=== PATIENT | male | born 1945 | race Two or more races ===

== ENCOUNTER 2022-01-07 02:05 | Emergency (ER) | payer OTHER ==
[~2022-01-07] VITALS: Ht 182.9 cm; Wt 80.0 kg
[2022-01-07 02:46] VITALS: BP 145/87
[2022-01-07 03:21] LABS: Amphetamine Screen, Urine NEGATIVE (NEGATIVE); Barbiturate Scree,Urine NEGATIVE (NEGATIVE); Benzodiazephine Screen, Urine NEGATIVE (NEGATIVE); Cannabinoid Screen, Urine NEGATIVE (NEGATIVE); Cocaine Screen, Urine NEGATIVE (NEGATIVE); Opiate Scree,Urine NEGATIVE (NEGATIVE); Phencyclidine Screen, Urine NEGATIVE (NEGATIVE)
[2022-01-07 03:41] LABS: Urine Bacteria FEW /hpf (None Seen); Urine Blood Negative /uL (Negative); Urine Mucus FEW (None Seen); Urine Specific Gravity 1.019 (1.001-1.035); Urine WBC 1 /hpf (0 - 3)
== END 2022-01-07 03:33 | disposition left against medical advice (07) ==
LOC: EDUNIT# 02:05 → EDBD 02:05 → ER 02:13
DX: R53.1 Weakness (principal); I25.10 Atherosclerotic heart disease of native coronary artery without angina pectoris; I10 Essential (primary) hypertension; Z20.822 Contact with and (suspected) exposure to COVID-19; Z98.890 Other specified postprocedural states
CPT/HCPCS: 36415; 80307; 81001; 87426; 93005

== ENCOUNTER 2024-07-02 18:03 | Emergency (ER) | payer OTHER ==
[~2024-07-02] VITALS: Ht 170.2 cm; Wt 80.0 kg
--- NOTE | 2024-07-02 18:19 | ED.PDOC ---
History of Present Illness HPI Comments PMHx:CAD, High Lipids, HTN SHx:Pacemaker, PTCA Social Hx: Daily Alcohol Use, Denies Tobacco, Denies Substance Use Patient is on Coumadin HPI: Poor Historian. 79-year-old male presents to us found by ambulance because the neighbor called on him because he found him on the floor of the garage. Patient is awake and alert and oriented. Patient admits to drinking daily alcohol three drinks each day. Patient has been feeling somewhat weak in the last few days but denies any head injury. Denies any active chest pain or shortness of breath. Patient lives alone. Patient was smells like alcohol. Past Medical History: Past Surgical History: REVIEW OF SYSTEMS: CONSTITUTIONAL: Denies acute: fever, diaphoresis, chills, HEAD: Denies acute: headache, photophobia Eyes: Denies acute: Double vision, vision loss, eye pain, eye discharge. EARS: Denies acute: tinnitus, hearing loss, ear discharge, ear pain, THROAT: Denies acute: sore throat, swelling, difficulty swallowing , pain with swallowing, change in voice. NECK: Denies acute: neck pain, neck swelling, stiff neck. HEART: Denies acute : chest pain, palpitations, LUNGS: Denies acute: SOB, wheezing, cough, hemoptysis ABDOMEN: Denies acute: abdominal pain, Nausea, Vomiting, diarrhea, melena , hematemesis, hematochezia SKIN: Denies acute: rash, redness, lesions, itchiness. EXTREMITIES: Denies acute: calf pain, numbness, tingling, weakness, denies pain in extremity. Denies acute: Low back pain. Neuro: Denies acute: focal neurological deficit, motor or sensory focal neurological deficit, tremors, seizure like activity, confusion, dizziness, change in mental status, loss of bowel or bladder function, cauda equina like symptoms. : Denies acute: dysuria, hematuria, flank pain, increase in urinary frequency. PSYCH: Denies acute: hallucination, suicidal ideation, homicidal ideation. PHYSICAL EXAM: General: ----mild----acute distress, awake and alert. Head: normocephalic, atraumatic. Neck: supple, trachea is midline, no swelling. Throat: Normal phonation. Eyes:, no erythema, no purulent discharge, no proptosis, no icterus. Heart: regular rate, regular rhythm, no significant murmur appreciated. Lungs: no apparent respiratory distress, Able to speak in full sentences. No wheezing, no rhonchi, no crackles. No stridors Clear to auscultation bilaterally. Abdomen: non tender to palpation, non distended, soft, no guarding, no rebound, + bowel sounds. Neuro: Awake, Alert, oriented to name, self, situation, follows commands GCS=15. Speech is normal. Skin: no petechia, no purpura, no cyanosis, non-pale, not jaundice. Lower extremities: --no - Pitting edema no deformity, no focal swelling, no calf TTP. Makes eye contact. moves all four extremities. Face: no apparent facial droop. Ambulating in the ED independently. No nuchal rigidity, Kernig's sign, Brudzinski's sign, no meningeal signs. ED COURSE: Time Seen by MD: 18:05 Primary Care Provider: NONE Reviewed Notes: Nurses Notes, Allergies Allergies: Coded Allergies: NO KNOWN ALLERGIES (Unverified , 08/13/12) Information Source: Patient, Emergency Med Personnel Mode of Arrival: EMS Severity: Moderate Past Medical History PAST MEDICAL HISTORY: CAD, High Lipids, HTN Surgical History: Pacemaker, PTCA Family History Family History: Reviewed,noncontributory to illness, Unknown Social History Smoker: Non-Smoker Alcohol: Heavy Drugs: Denies Drug Use Lives In: Home Was a procedure done? Was a procedure done?: No Differential Dx Considerations may include: DDX include CVA, TGA, cerebellar ischemia/infarct, carotid stenosis, Intracranial mass/infection/bleed, encephalopathy, electrolyte abnormality, thyroid disease, hydrocephalus, hypoglycemia, drug toxicity, cardiac arrhythmia, seizure, infection in the elderly, Hyperammonemia., kidney failure., sepsis. X-Ray, Labs, Meds, VS Vital Signs Date Time Temp Pulse Resp B/P (MAP) Pulse Ox O2 Delivery O2 Flow Rate FiO2 07/02/24 20:00 83 07/02/24 18:39 98.3 78 16 150/77 (101) 99 98.3 07/02/24 18:26 73 Lab Test 07/02/24 19:40 07/02/24 18:41 Range/Units Urine Color Colorless Yellow Urine Clarity Clear Clear Urine pH 5.5 5.0-9.0 Urine Specific [place] 1.007 1.001-1.035 Urine Protein Negative Negative Urine Ketones Negative Negative Urine Blood Negative Negative /uL Urine Nitrite Negative Negative Urine Bilirubin Negative Negative Urine Urobilinogen Normal Negative mg/dL Urine Leukocyte Esterase Negative Negative /uL Urine RBC None seen 0 - 3 /hpf Urine Microscopic WBC < 1 0-3 /HPF Urine Squamous Epithelial Cells Few <5 /hpf Urine Bacteria None seen None Seen /hpf Urine Glucose Normal Normal mg/dL White Blood Count 5.1 4.4-10.8 10^3/uL Red Blood Count 4.77 4.5-5.90 10^6/uL Hemoglobin 15.3 13.5-17.5 g/dL Hematocrit 46.0 41.0-53.0 % Mean Corpuscular Volume 96.4 80.0-100.0 fL Mean Corpuscular Hemoglobin 32.1 H 28.0-32.0 pg Mean Corpuscular Hemoglobin Concent 33.3 32.0-36.0 g/dL Red Cell Distribution Width 13.2 11.8-14.3 % Platelet Count 175 140-450 10^3/uL Mean Platelet Volume 7.3 6.9-10.8 fL Neutrophils (%) (Auto) 65.7 37.0-80.0 % Lymphocytes (%) (Auto) 24.4 10.0-50.0 % Monocytes (%) (Auto) 8.5 0.0-12.0 % Eosinophils (%) (Auto) 1.1 0.0-7.0 % Basophils (%) (Auto) 0.3 0.0-2.0 % Neutrophils # (Auto) 3.4 1.6-8.6 10 ^3/uL Lymphocytes # (Auto) 1.2 0.4-5.4 10 ^3/uL Monocytes # (Auto) 0.4 0-1.3 10 ^3/uL Eosinophils # (Auto) 0.1 0-0.8 10 ^3/uL Basophils # (Auto) 0 0-0.2 10 ^3/uL Nucleated Red Blood Cells 0.1 % Prothrombin Time 10.6 9.3-11.8 sec Prothrombin Time INR 1.00 0.9-1.15 Activated Partial Thromboplast Time 32.4 24.5-34.5 SEC Sodium Level 143 136-145 mmol/L Potassium Level 4.2 3.5-5.1 mmol/L Chloride Level 108 H 98-107 mmol/L Carbon Dioxide Level 23 20-31 mmol/L Anion Gap 12 5-15 Blood Urea Nitrogen 23 9-23 mg/dL Creatinine 1.07 0.700-1.30 mg/dL Glomerular Filtration Rate Calc 71 >90 mL/min BUN/Creatinine Ratio 21.5 H 10.0-20.0 Serum Glucose 96 74-106 mg/dL Lactic Acid Level 3.4 *H 0.4-2.0 mmol/L Calcium Level 9.0 8.7-10.4 mg/dL Magnesium Level 2.0 1.6-2.6 mg/dL Total Bilirubin 0.3 0.2-1.0 mg/dL Aspartate Amino Transferase (AST) 18 13-40 U/L Alanine Aminotransferase (ALT) 13 7-40 U/L Alkaline Phosphatase 71 46-116 U/L Troponin I High Sensitivity 15 </=54 ng/L B-Type Natriuretic Peptide 90.57 0-100 pg/mL Total Protein 6.7 5.7-8.2 g/dL Albumin 4.5 3.2-4.8 g/dL Plasma/Serum Blood Alcohol 249.6 H <10 mg/dL Current Medications Medications (Trade) Dose Ordered Sig/Marlyn Route Start Time Stop Time Status Last Admin Sodium Chloride 1,000 ml @ 1,000 mls/hr Q1H ONCE IV 07/02/24 18:30 07/02/24 19:29 DC 07/02/24 18:49 [place] [address] Ph: [phone] DIAGNOSTIC IMAGING Diagnostic Imaging Report : [id number] Signed PATIENT: FAHAD HILL ACCT: [id number] UNIT: [id number] : 1945 LOC: ER ROOM / BED: / AGE / SEX: 79 / M ADM STATUS: REG ER SERVICE 16 ORDERING PHYSICIAN: JHONY KEANE DO PROCEDURE(s): HWOCT - HEAD WITHOUT CONTRAST REASON: fall ORDER NUMBER(s): [id number], ACCESSION NUMBER(s): [id number] CT HEAD WITHOUT CONTRAST INDICATION: fall COMPARISON: None TECHNIQUE: CT of the head without intravenous contrast. RADIATION DOSE: CTDIvol: 54.41 mGy, DLP: 963.54 mGy*cm FINDINGS: There is no evidence of intracranial hemorrhage, large infarct, extra-axial collection, mass effect, midline shift, herniation or hydrocephalus. 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 [id number] ventricular and sulcal enlargement related to cerebral volume loss. Visualized paranasal sinuses and mastoid air cells are clear. Soft tissues and osseous structures are unremarkable. IMPRESSION: No hemorrhage or other acute intracranial abnormality. ATED BY: DONNELL GRANT MD DICTATED DATE/TIME: 07/02/241921 SIGNED BY: DONNELL GRANT MD SIGNED DATE/TIME: 07/02/241921 CC: [place] [address] Ph: [phone] DIAGNOSTIC IMAGING Diagnostic Imaging Report : [id number] Signed PATIENT: FAHAD HILL ACCT: [id number] UNIT: [id number] : 1945 LOC: ER ROOM / BED: / AGE / SEX: 79 / M ADM STATUS: REG ER SERVICE 15 ORDERING PHYSICIAN: JHONY KEANE DO PROCEDURE(s): CXRP - CHEST PORTABLE REASON: dizzy, etoh ORDER NUMBER(s): [id number], ACCESSION NUMBER(s): [id number] EXAM: XY CHEST PORTABLE REASON FOR EXAM: dizzy, etoh TECHNIQUE: 1 view of the chest COMPARISON: EKG on DOS: 01/07/22 FINDINGS: LUNGS: No pleural effusion, consolidation, or pneumothorax MEDIASTINUM: Normal cardiac size. Right anterior chest cardiac device. BONES: No acute osseous abnormality OTHER: None IMPRESSION: 1. No radiographic evidence of an acute cardiopulmonary process. ATED BY: REENA ESTRELLA MD DICTATED DATE/TIME: 07/02/241921 SIGNED BY: REENA ESTRELLA MD SIGNED DATE/TIME: 07/02/241921 CC: Time of 1ST Reevaluation: 18:35 Reevaluation 1ST: Unchanged Patient Education/Counseling: Diagnosis, Treatment Family Education/Counseling: No Family Present Comments Patient presented with the above HPI.---altered level of consciousness alcohol abuse---workup was initiated. patient was found with the above mentioned diagnosis. the following medications were ordered: please refer to order lists of meds and tests obtained by myself Dr. Keane. Patient ED course and VS have been stabilized. Patient has been reassessed in e ED and remained in a stable condition. Patient left against medical advice. All the reports of any imaging studies that were ordered by myself were reviewed by myself. Departure 1 Departure Time of Disposition: 20:30 Impression: Primary Impression: Alcohol abuse Additional Impressions: Altered level of consciousness Left against medical advice Toxic metabolic encephalopathy Disposition: LEFT AGAINST MEDICAL ADVICE Condition: Other Additional Instructions: Patient left against medical advice. Discharged With: Self, Friend Critical Care Note Critical Care Time?: No Heart Score Heart Score: Heart Score Response (Comments) Value History N/A 0 EKG N/A 0 Age N/A 0 Risk Factors N/A 0 Troponin N/A 0 Total 0 I personally scribed for HJONY KEANE DO ([email or web address]) on 07/02/24 at 18:19. Electronically submitted by Jaime Rubi ([email or web address]). JHONY KEANE DO Jul 02, 2024 18:19
[2024-07-02] MEDS: SODIUM CHLORIDE 0.9% 1,000 ML IV ONE (18:49)
[2024-07-02 18:52] LABS: Basophils # (auto) 0 10 ^3/uL (0-0.2); Basophils % (auto) 0.3 % (0.0-2.0); Eosinophils # (auto) 0.1 10 ^3/uL (0-0.8); Eosinophils % (auto) 1.1 % (0.0-7.0); Hemoglobin 15.3 g/dL (13.5-17.5); Lymphocytes # (auto) 1.2 10 ^3/uL (0.4-5.4); Lymphocytes % (auto) 24.4 % (10.0-50.0); Mean Corpuscular Hemoglobin 32.1 pg (28.0-32.0); Mean Corpuscular Hgb Conc. 33.3 g/dL (32.0-36.0); Mean Corpuscular Volume 96.4 fL (80.0-100.0); Monocytes # (auto) 0.4 10 ^3/uL (0-1.3); Monocytes % (auto) 8.5 % (0.0-12.0); Neutrophils # (auto) 3.4 10 ^3/uL (1.6-8.6); Neutrophils % (auto) 65.7 % (37.0-80.0); Nucleated Red Blood Cells % 0.1 %; Platelet Count (auto) 175 10^3/uL (140-450); Red Blood Cells 4.77 10^6/uL (4.5-5.90); Red Cell Distribution Width 13.2 % (11.8-14.3); White Blood Cell 5.1 10^3/uL (4.4-10.8)
[2024-07-02 19:08] LABS: Partial Thromboplastin Time 32.4 SEC (24.5-34.5); Prothrombin Time 10.6 sec (9.3-11.8)
[2024-07-02 19:22] LABS: Alanine Aminotransferase 13 U/L (7-40); Albumin 4.5 g/dL (3.2-4.8); Alkaline Phosphatase 71 U/L (46-116); Anion Gap 12 (5-15); Aspartate Aminotransferase 18 U/L (13-40); BUN/Creatinine Ratio 21.5 (10.0-20.0); Bilirubin, Total 0.3 mg/dL (0.2-1.0); Blood Alcohol 249.6 mg/dL (<10); Blood Urea Nitrogen 23 mg/dL (9-23); Carbon Dioxide 23 mmol/L (20-31); Glucose 96 mg/dL (74-106); Total Protein 6.7 g/dL (5.7-8.2)
--- NOTE | 2024-07-02 19:24 | DVH ---
CT HEAD WITHOUT CONTRAST INDICATION: fall COMPARISON: None TECHNIQUE: CT of the head without intravenous contrast. RADIATION DOSE: CTDIvol: 54.41 mGy, DLP: 963.54 mGy*cm FINDINGS: There is no evidence of intracranial hemorrhage, large infarct, extra-axial collection, mass effect, midline shift, herniation or hydrocephalus. Evidence of very small old cortical infarct in right pos terior frontal lobe. [id number] ventricular and sulcal enlargement related to cerebral volume l oss. Visualized paranasal sinuses and mastoid air cells are clear. Soft tissues and osseous structure s are unremarkable. IMPRESSION: No hemorrhage or other acute intracranial abnormality.
--- NOTE | 2024-07-02 19:24 | DVH ---
EXAM: XY CHEST PORTABLE REASON FOR EXAM: dizzy, etoh TECHNIQUE: 1 view of the chest COMPARISON: EKG on DOS: 01/07/22 FINDINGS: LUNGS: No pleural effusion, consolidation, or pneumothorax MEDIASTINUM: Normal cardiac size. Right anterior chest cardiac device. BONES: No acute osseous abnormality OTHER: None IMPRESSION: 1. No radiographic evidence of an acute cardiopulmonary process.
[2024-07-02 19:29] LABS: Chloride 108 mmol/L (98-107); Potassium 4.2 mmol/L (3.5-5.1); Sodium 143 mmol/L (136-145)
[2024-07-02 19:31] LABS: Lactic Acid w/Reflex 3.4 mmol/L (0.4-2.0)
[2024-07-02 19:47] LABS: Urine Bacteria None Seen /hpf (None Seen)
[2024-07-02 20:06] LABS: Urine Blood Negative /uL (Negative); Urine Clarity Clear (Clear); Urine Color Colorless (Yellow); Urine Protein, UAD Negative (Negative); Urine Specific Gravity 1.007 (1.001-1.035); Urine Squamous Epithelial Cell FEW /hpf (<5); Urine Urobilinogen Normal (Negative); Urine WBC < 1 /HPF (0-3); Urine pH 5.5 (5.0-9.0)
[2024-07-02 20:40] VITALS: BP 152/94; TEMP 98.1
[2024-07-02 20:46] VITALS: PULSE 70; RESP 18; O2SAT 94
--- NOTE | 2024-07-03 09:20 | ECG ---
[facility] Test Date: 2024-07-02 Test Time: 18:15:42 Pat Name: FAHAD HILL Department: ED Room: Gender: M [employer] Attacher: LIAM : 1945 Requested By: JHONY KEANE Order Number: [id number] Reading MD: Poli Tamayo Measurements Intervals [place] Rate: 73 P: 45 WA: 173 QRS: 248 QRSD: 163 T: 81 QT: 464 QTc: 512 Interpretive Statements Atrial-sensed ventricular-paced rhythm No further analysis attempted due to paced rhythm Electronically Signed On 07-05-2024 20:24:37 PDT by Poli Tamayo Please click the below link to view image of tracing.
== END 2024-07-02 20:20 | disposition left against medical advice (07) ==
LOC: EDBD 18:03 → ER 18:09
DX: F10.10 Alcohol abuse, uncomplicated (principal); G92.8 Other toxic encephalopathy; I10 Essential (primary) hypertension; E78.5 Hyperlipidemia, unspecified; R06.02 Shortness of breath; I25.10 Atherosclerotic heart disease of native coronary artery without angina pectoris; Z95.0 Presence of cardiac pacemaker; Z79.899 Other long term (current) drug therapy
CPT/HCPCS: 36415; 70450; 71045; 80053; 80320; 81001; 82947; 83605; 83735; 83880; 84484; 85025; 85610; 85730; 93005; 96360; 99285; J7030